=== PATIENT | male | born 1995 | race American Indian/Alaskan Native ===

== ENCOUNTER 2018-05-24 20:06 | Emergency (ER) | payer OTHER ==
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
[2018-05-24] MEDS ORDERED: IBUPROFEN PO STA (20:18)
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
--- NOTE | 2018-05-24 23:39 | XRay Report ---
PROCEDURE: Left HIP, 2 VIEWS TECHNIQUE: Left hip radiographs, AP and lateral views. CPT 88305 HISTORY: Pain COMPARISONS: None . FINDINGS: Fracture (s) and/or Dislocation(s): None . Joint space(s): Normal . Soft tissues: Normal . Bone mineralization: Normal . Foreign bodies: None . IMPRESSION: Normal Examination . This document is electronically signed by Jordan Lundberg MD., May 24 2018 11:37:37 PM ET
--- NOTE | 2018-05-24 23:40 | XRay Report ---
PROCEDURE: LUMBAR SPINE, 2 VIEWS TECHNIQUE: Lumbar spine radiographs, frontal and lateral views. CPT 91784 HISTORY: Pain COMPARISONS: None . FINDINGS: Alignment: Normal . Vertebral body heights/Disk spaces: Normal . Fracture(s): None . Facets: Normal . Bone mineralization: Normal . IMPRESSION: Normal Examination . This document is electronically signed by Jordan Lundberg MD., May 24 2018 11:38:44 PM ET
[2018-05-25 01:10] VITALS: BP 148/84
== END 2018-05-25 01:13 | disposition home or self-care (01) ==
LOC: ED 20:06
DX: S39.012A Strain of muscle, fascia and tendon of lower back, initial encounter (principal); S76.012A Strain of muscle, fascia and tendon of left hip, initial encounter; V89.2XXA Person injured in unspecified motor-vehicle accident, traffic, initial encounter; Y93.89 Activity, other specified; Y92.488 Other paved roadways as the place of occurrence of the external cause; Y99.8 Other external cause status
CPT/HCPCS: 72100; 99283